=== PATIENT | male | born 1990 | race Hispanic/Latino ===

== ENCOUNTER → 2020-02-23 | Outpatient (CLI) | payer BC ==
--- NOTE | 2020-02-23 15:38 | Diagnostic Imaging Report ---
EXAM: CHEST 2 VIEWS DATE: 02/23/2020 3:22 PM INDICATION: Follow-up kidney cancer COMPARISON: None FINDINGS: The trachea is midline. The lungs are symmetrically expanded without evidence for large focal consolidation, pneumothorax, or significant pleural effusion. The cardiomediastinal silhouette and pulmonary vasculature are within normal limits. No acute osseous abnormality is identified. The surrounding soft tissues are unremarkable. IMPRESSION: No acute cardiopulmonary process identified. Signed by: Dr. Cecilio Lopez MD on 02/23/2020 3:35 PM
--- NOTE | 2020-02-23 16:02 | Diagnostic Imaging Report ---
EXAM: US RENAL RETROPERITONEAL COMP DATE: 02/23/2020 3:29 PM INDICATION: Malignant neoplasm of right kidney COMPARISON: None FINDINGS: The right kidney surgically absent. No abnormalities identified within the right renal fossa. The left kidney is normal in size measuring 11.9 x 5.4 x 5.3 cm with cortical thickness of 2.3 cm. Cortical echogenicity is within normal limits. There is no evidence for solid renal mass, hydronephrosis, or shadowing calculi. The urinary bladder is unremarkable. Prevoid volume is 224 cc. A left ureteral jet is visualized. IMPRESSION: Status post] knee. Unremarkable sonographic appearance of the left kidney. Signed by: Dr. Cecilio Lopez MD on 02/23/2020 3:59 PM
== END ==
LOC: US 15:11
PROVIDERS: ATTEND Urology
DX: C64.1 Malignant neoplasm of right kidney, except renal pelvis (principal)
CPT/HCPCS: 71046; 76770